=== PATIENT | male | born 1965 | race Caucasian/White ===

== ENCOUNTER → 2017-05-15 | Outpatient (CLI) | payer OTHER ==
[~2017-05-15] MED LIST: ACETAMINOPHEN325 M1 PO; ADVAIR 250-501 EACH; ADVAIR 500-501 EACH INH; ADVAIR HFA 45MC1 AER INH; AUGMENTIN 875875 MG PO; CARISOPRODOL 3350 MG PO; COLACE100 MG PO; COUMADIN 5 MG TA5 M1 PO; DILAUDID 4 MG TA4 M1 PO; ENOXAPARIN120 MG/0.1 SUBQ; FOLBIC RF TABL1 EACH PO; FOLIC ACID 40400 MCG PO; GLUCOPHAGE500 MG PO; HYDROCODONE-AP1 EAC6 PO; INTUNIV2 MG; INTUNIV3 MG PO; INTUNIV4 MG PO; KEFLEX500 MG PO; LANSOPRAZOLE30 MG PO; LANTUSSOLASTAR SUBQ; LEVAQUIN 500 M500 MG PO; LISINOPRIL10 MG PO; MEDROLDOSEPACK PO; MOBIC15 MG PO; NIASPAN 500 MG500 M1 PO; NORCO 5-325 TA1 EACH PO; NORVASC5 MG PO; PERCOCET 10-321 EACH PO; PERCOCET 7.5-31 EAC1 PO; PERCOCET 7.5-31 EACH PO; PREDNISONE50 MG PO; PRISTIQ100 MG PO; PROAIR HFA8.5 GM; RITALIN20 MG PO; SENNA8.6 MG PO; SINGULAIR 10 MG10 M1 PO; VITAMIN D32000 UNI1 PO; VITAMIN E400 UNIT PO; XARELTO15 MG PO
== END ==
LOC: RAD 06:58
DX: M48.02 Spinal stenosis, cervical region (principal); M54.12 Radiculopathy, cervical region

== ENCOUNTER 2019-05-27 19:47 | Inpatient (IN) | payer OTHER ==
[~2019-05-27] VITALS: Ht 193 cm; Wt 125.2 kg
[2019-05-27 19:53] VITALS: BP 173/110
[2019-05-27 21:24] LABS: ABSOLUTE NEUTROPHILS 3.8 thou/uL (1.4-8.2); BASOPHILS 1.3 % (0.0-2.0); EOSINOPHILS 1.9 % (0.0-3.0); HEMATOCRIT 48.5 % (42.0-52.0); HEMOGLOBIN 15.9 gm/dL (14.0-18.0); LYMPHOCYTES 23.2 % (24.0-44.0); MCH 29.7 pg (26.0-34.0); MCHC 32.9 g/dL (28.0-37.0); MCV 90.2 fL (80.0-100.0); MONOCYTES 9.4 % (1.0-8.0); PLATELET COUNT 163 thou/uL (150-400); POLYS 64.2 % (36.0-66.0); RBC 5.37 mil/uL (4.50-6.00); RDW 14.4 % (10.5-14.5)
[2019-05-27 21:46] LABS: ANION GAP 20 mmol/L (7-16); BUN 24 mg/dL (7-18); CHLORIDE 93 mmol/L (98-107); CO2 13 mmol/L (21-32); CREATININE 1.2 mg/dL (0.7-1.3); POTASSIUM 4.9 mmol/L (3.5-5.1); SODIUM 126 mmol/L (136-145); TROPONIN-I <0.06 ng/mL (<0.06)
[2019-05-27 21:48] LABS: GLUCOSE 571 mg/dL (74-106)
[2019-05-27 22:41] LABS: URINE BILIRUBIN NEGATIVE (Negative); URINE BLOOD NEGATIVE (Negative); URINE CLARITY CLEAR; URINE COLOR YELLOW; URINE GLUCOSE-RANDOM* 3+ (Negative); URINE KETONES TRACE (Negative); URINE LEUKOCYTES-REFLEX NEGATIVE (Negative); URINE NITRITE-REFLEX NEGATIVE (Negative); URINE PROTEIN (DIPSTICK) NEGATIVE (Negative); URINE REDUCING SUBSTANCE >2 %; URINE UROBILINOGEN 0.2 E.U./dl (0.2-1.0)
--- NOTE | 2019-05-27 22:47 | NUR ---
PROVIDER AT BEDSIDE SPEAKING WITH PT ABOUT RESULTS
[2019-05-28] VITALS (26 sets, daily range): BP systolic 112–168; BP diastolic 74–107
--- NOTE | 2019-05-28 00:14 | NUR ---
СВЕТЛАНА TOOL DISPATCHER AT BEDSIDE SPEAKING TO PT
[2019-05-28 01:06] LABS: MAGNESIUM 1.8 mg/dL (1.8-2.4); PHOSPHORUS 3.6 mg/dL (2.5-4.9)
[2019-05-28 06:09] LABS: CALCIUM 8.4 mg/dL (8.5-10.1); CREATININE 0.9 mg/dL (0.7-1.3); PHOSPHORUS 3.1 mg/dL (2.5-4.9)
[2019-05-28 06:13] LABS: POTASSIUM 3.5 mmol/L (3.5-5.1)
--- NOTE | 2019-05-28 06:30 | NUR ---
Pt admitted from ED for DKA, with BGL at 494, he had a syncopal episode prior to admission, with mild swelling noted to his Lt lateral knee, he received PO tylenol/ice pack with good relief. He is A/O x 4, is quite pleasant, DENT's, transferred from the cart to the bed w/o difficulty. SR/ST, a positional BP cuff reads elevated at times, no edema, + pulses. LCTA, diminished to bases, on O2 at 2 L/m, he has a HX of asthma. Insulin drip infusing, with steady decline of blood glucose readings noted. GAP is at 16 this morning, review labs for other values.
--- NOTE | 2019-05-28 08:09 | EKG ---
[address] [address] ELECTROCARDIOGRAM REPORT Name: WAGNER GARDNER Room #: 244-P ADM IN M.R.#: [id number] Admission: 05/27/19 Attend Phys: Mora Sanchez Discharge: Date of : 65 Report #: [id number] THIS REPORT FOR: //name// [facility] ED Test Date: 2019-05-27 Test Time: 20:43:17 Pat Name: WAGNER GARDNER Department: Room: 244 Gender: M Head Of Sales: eli : 1965 Requested By: Alphonso Cox Order Number: [id number] MD: Drake Miguel Measurements Intervals [place] Rate: 111 P: 51 VT: 173 QRS: -24 QRSD: 126 T: 52 QT: 328 QTc: 446 Interpretive Statements Sinus tachycardia Nonspecific intraventricular conduction delay Baseline wander in lead(s) V3 Compared to ECG 01/19/2016 11:29:57 Heart rate has increased Electronically Signed On 05-28-2019 8:09:25 INTERIOR SPECIALIST by Drake Miguel [email or web address] <ELECTRONICALLY SIGNED> By: Drake Miguel MD, [facility] 05/28/19 [phone] Drake Miguel MD, [facility] /EPI
--- NOTE | 2019-05-28 10:11 | NUR ---
Nutrition: pt admitted to ICU with DKA and syncopal episode, admitting BG 571. Pt lost his job 2 months ago and has been without diabetic medications past 2 months. A1C 2-3 months ago reported as 6.2% and pt was followed by curatorial assistant. Currently on insulin drip. Usual appetite is good and recent weights stable. On clear liquids at present. Assistance will be provided so pt can get affordable meds and control DM until health insurance obtained. RD available as needed however pt denies present education needs, states follows diet at home. Low nutrition risk.
[2019-05-28 10:13] LABS: CHOLESTEROL 235 mg/dL (<200); HDL CHOLESTEROL 29 mg/dL (>40); TC:HDL 8.1 Ratio (Not establshd); TRIGLYCERIDE 1030 mg/dL (<150); VLDL 206 mg/dL (<40)
[2019-05-28 10:19] LABS: ALBUMIN 2.9 g/dL (3.4-5.0); CALCIUM 8.1 mg/dL (8.5-10.1); CREATININE 0.9 mg/dL (0.7-1.3); PHOSPHORUS 2.6 mg/dL (2.5-4.9); POTASSIUM 3.9 mmol/L (3.5-5.1)
[2019-05-28] MEDS ORDERED: BASAGLAR K100 UNIT/1 SUBQ (10:55)
--- NOTE | 2019-05-28 12:27 | HC ---
[facility] [place] [address] CONSULTATION Name: WAGNER GARDNER Room #: 244-P [facility] IN .R.#: [id number] Admission: 05/27/19 Attend Phys: Mercedez Knox MD Discharge: Date of : 65 Report #: [id number] THIS REPORT FOR: //name// CC: Mora Roth DATE OF SERVICE: 05/28/2019 CONSULTING PHYSICIAN: Dr. Marcelo Roth. REASON FOR CONSULTATION: Diabetic ketoacidosis, uncontrolled type 2 diabetes mellitus. HISTORY OF PRESENT ILLNESS: This is a 53-year-old male patient whose medical background is significant for type 2 diabetes mellitus, hypertension, DVT and PE. The patient presented to the Emergency Department yesterday following a syncopal episode. The patient notes that while at a gas station, he felt suddenly extreme weakness and collapsed to the floor, only to wake up after that uneventfully and without confusion. The patient notes that he had felt quite well up until that occurrence. His background is significant for type 2 diabetes mellitus diagnosed 15 years ago. He was maintained on a regimen consisting of metformin, weekly Trulicity, Levemir insulin 28 units daily. He notes that he has been following routinely with his public health teacher at [facility] and that his most recent hemoglobin A1c 2 to 3 months ago was 6.2%. Unfortunately, the patient lost his job about 2 months ago, and with that, he lost health coverage. This led to the complete cessation of oral antidiabetic agents as well as all of his other medicines including his antihypertensive regimen Xarelto and ADD medicines. He has not checked his blood sugars whatsoever during this period of time due to lack of glucose testing strips. He has not practically appreciated and issues with polyuria, excessive thirst or weight changes. As noted above, the patient has hypertension and was on a regimen of lisinopril, amlodipine. I did not see any lipid-lowering agents on his previous medication list. The patient denies active issues with coronary artery disease, retinopathy, but notes that he was diagnosed with peripheral neuropathy at some point. The patient is status post left great toe amputation. REVIEW OF SYSTEMS: CONSTITUTIONAL: Fatigue, tiredness, but not fever or chills or weight changes. HEENT: Negative for sinus pain, ear drainage. PULMONARY: Negative for shortness of breath, cough or hemoptysis. CARDIAC: Negative for chest pain, palpitations, syncope or presyncope. GASTROINTESTINAL: Negative for abdominal pain, nausea, vomiting. NEUROLOGY: Negative for loss of consciousness prior to presentation. Negative [facility] [address] [place] [address] CONSULTATION Name: WAGNER GARDNER Room #: 244-P [facility] IN M.R.#: [id number] Admission: 05/27/19 Attend Phys: Mercedez Knox MD Discharge: Date of : 65 Report #: [id number] for seizure activity. Negative for frequent severe headaches. PSYCHIATRIC: Negative for delusions, hallucinations. The patient has baseline ADD issues. SKIN: Negative for rash, ulceration or other major changes. Otherwise, review of systems is noncontributory other than those mentioned in HPI. PAST MEDICAL HISTORY: 1. Type 2 diabetes mellitus. 2. Hypertension. 3. DVT. 4. PE. 5. ADD. 6. Diabetic neuropathy. 7. Asthma. ALLERGIES: ASPIRIN. OUTPATIENT MEDICATIONS: The patient has not had any medications whatsoever for the past 2 months. However, prior to that, he was on a regimen of: 1. Trulicity once a week. 2. Levemir 28 units daily. 3. Metformin b.i.d. 4. Amlodipine. 5. Lisinopril. 6. Ritalin. 7. Pristiq. FAMILY HISTORY: Noncontributory. SOCIAL HISTORY: The patient is single. He has 2 grown children. 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 He anticipates to get a job in 1-2 months from now. The patient denies use of alcohol or illicit drugs. The patient is an ex-smoker, but quit smoking more than 20 years ago. PHYSICAL EXAMINATION: GENERAL: This is a pleasant male patient who is not in apparent pain or distress. He is lying in bed, seemingly comfortable, not in apparent pain or distress. VITAL SIGNS: Blood pressure is 120/79, heart rate is 84 beats per minute, respirations 15 per minute, temperature 36.7 degrees. HEENT: Anicteric sclerae. Intact extraocular motions. NECK: Supple without JVD, carotid bruits or lymphadenopathy. I do not appreciate thyromegaly. CHEST: Clear to auscultation with good air entry bilaterally. No wheeze or [facility] [address] [place] [address] CONSULTATION Name: WAGNER GARDNER Room #: 244-P [facility] IN M.R.#: [id number] Admission: 05/27/19 Attend Phys: Mercedez Knox MD Discharge: Date of : 65 Report #: [id number] crackles noted. There is no percussion noted over both lung rehman. HEART: Regular rate and rhythm without murmurs or gallops. ABDOMEN: Soft and lax without tenderness or organomegaly, has active bowel sounds. EXTREMITIES: Lower extremity exam is negative for ankle edema. The patient is status post left great toe amputation. Pedal pulses are faint. Sensation to light touch is moderately diminished bilaterally. NEUROLOGIC: Awake, alert and oriented to time, place and person. The remainder of his examination is nonfocal other than for the sensory deficits noted above. PSYCH: Pleasant, appropriate and interactive. Normal mood and affect. LABORATORY DATA: On arrival, the patient had blood glucose of 482 mg/dL, which had gradually descended to 221 mg/dL. Sodium 135, potassium 3.5, chloride 102, CO2 of 17, anion gap 16, this was 19 on arrival, BUN 17, creatinine 0.9, AST 11, total bilirubin 0.3, calcium 8.4, phosphorus 3.1, magnesium 1.6, alkaline phosphatase 145, ALT 34, total protein 6.9, albumin 3.0. EGFR 88. Lactic acid 0.5, troponin 0.22. INR 1.8. White blood count 6.0, hemoglobin 15.9, hematocrit 48.5, platelets 163. ASSESSMENT AND PLAN: 1. Diabetic ketoacidosis. As noted above, the patient presented in diabetic ketoacidosis. Judging by the presenting parameters, it appears that this has not necessarily been severe. The patient had already been placed on the proper management including IV insulin and IV fluids, and is being managed as per IV insulin protocol. I would like to continue these measures for at least 24 hours to ensure the complete normalization of his metabolic deficits abnormalities. I would advise continuing with IV insulin as per protocol and maintain blood glucose monitoring as per protocol as well. Once his stability was ensured in 24 hours, an effort will be made to transition the patient to subcutaneous insulin intake. In order to facilitate this transition as we anticipated to be early tomorrow, I will present the patient with a single dose of Lantus at 16 units. 2. Type 2 diabetes mellitus. As noted above, the patient has had a longstanding history of type 2 diabetes mellitus, which has reportedly been under very good control with his stated outpatient regimen. Unfortunately, the complete cessation of oral antidiabetic agents for extended period of time had resulted in a decline that culminated in his DKA presentation. The patient was counseled extensively about the importance of achieving and maintaining adequate glycemic control so as to avoid diabetic complications short term and usp. I explained that even without any health coverage in place, there are generic options to be considered and to ensure his safety while he awaits a better health plan in terms. He expresses understanding of this notion. Given his presentation with DKA, I believe that future antidiabetic plans should definitely include insulin to avoid this predicament again. The details of his transition will be determined based on his outlook instability upon the cessation of intravenous insulin therapy. In the meantime, I will obtain a [address] [place] [address] CONSULTATION Name: KENDRAWAGNER Kehinde Room #: 244-P [facility] IN M.R.#: [id number] Admission: 05/27/19 Attend Phys: Mercedez Knox MD Discharge: Date of : 65 Report #: [id number] hemoglobin A1c to get a better feel for his overall level of control over the past several weeks. 3. Hyperlipidemia. As a patient with type 2 diabetes mellitus and thromboembolic disease, and adequate lipid status assessment should be conducted. I will do so today. 4. Thyroid dysfunction. Given his diabetic state, I will screen the patient for thyroid dysfunction and undertake any necessary measures if abnormalities encountered. 5. Hypertension. The patient states that he had been on dual therapy for hypertension. However, his blood pressure control is adequate thus far without active therapy. I will defer active management to the Hospital Medicine team. I certainly appreciate this consultation by Dr. Roth. <ELECTRONICALLY SIGNED> By: Roslyn Villalpando MD 05/28/19 1227 [id number] Roslyn Villalpando MD /nt
--- NOTE | 2019-05-28 13:49 | NUR ---
Case opened to follow for dc planning. Pt is currently in ICU on an insulin gtt for DKA. He is A&ox4 and indicates that he is normally indep with gait and adl's and lives with his parents and adult children. 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 He has been living off student loans and borrowing from family for the past year. He stopped taking his insulin and xarelto a few months ago due to finances. He is aware of [facility] and that he can contact his pcp office for samples. We discussed utilizing saftey net clinics like [facility] walkin clinic if needed. He is agreeable and will followup. Cm to help with 30 day supply [place] meds at [place]. The pt has been given a slim application by admitting and he will complete that and return it in the near future. He hurt his knee when he passed out and states he has a bariatric walker at home if needed. He is hoping to have insurance by August 09 through the new job. Pt is most concerned about his insulin and blood thinner. Will follow.
[2019-05-28 16:18] LABS: ALBUMIN 3.3 g/dL (3.4-5.0); CREATININE 1.1 mg/dL (0.7-1.3); PHOSPHORUS 3.2 mg/dL (2.5-4.9); POTASSIUM 3.7 mmol/L (3.5-5.1)
[2019-05-29] VITALS (9 sets, daily range): BP systolic 103–152; BP diastolic 64–93
[2019-05-29 01:06] LABS: GLYCOHEMOGLOBIN (HGB A1C) 14.1 % (4.8-5.6)
--- NOTE | 2019-05-29 05:07 | NUR ---
ASSUMED CARE OF PT AT 0315 FROM [facility]. PT ALERT AND ORIENTED. APPROPRIATE AND COOPERATIVE. SR. INSULIN GTT TITRATED PER DKA PROTOCOLL. WILL CONTINUE TO MONITOR.
[2019-05-29 06:07] LABS: ABSOLUTE NEUTROPHILS 2.1 thou/uL (1.4-8.2); BASOPHILS 0.7 % (0.0-2.0); HEMATOCRIT 40.7 % (42.0-52.0); LYMPHOCYTES 37.3 % (24.0-44.0); MCH 28.8 pg (26.0-34.0); MCV 90.2 fL (80.0-100.0); MONOCYTES 11.1 % (1.0-8.0); PLATELET COUNT 125 thou/uL (150-400); POLYS 47.9 % (36.0-66.0); RBC 4.52 mil/uL (4.50-6.00); RDW 14.5 % (10.5-14.5); WBC 4.5 thou/uL (4.0-11.0)
[2019-05-29 06:16] LABS: ALBUMIN 2.5 g/dL (3.4-5.0); CALCIUM 7.7 mg/dL (8.5-10.1); CREATININE 0.9 mg/dL (0.7-1.3); MAGNESIUM 1.8 mg/dL (1.8-2.4); POTASSIUM 3.4 mmol/L (3.5-5.1); TOTAL BILIRUBIN 0.2 mg/dL (<0.1-1.0); TOTAL PROTEIN 5.8 g/dL (6.4-8.2)
[2019-05-29] MEDS ORDERED: TRADJENTA5 MG PO (11:59)
[2019-05-29] MEDS ORDERED: LANTUS100 UNIT/M SUBQ (11:59)
[2019-05-29] MEDS ORDERED: HUMALOG100 UNIT/1 SUBQ (12:00)
--- NOTE | 2019-05-29 15:53 | NUR ---
ASSUMED CARE OF PATIENT APPROX 1300. PATIENT TRANSFER FROM ICU. PATIENT CAME UP ON INSULIN DRIP WITH 57 UNITS REMAINING. PATIENT IN NO DISTRESS AND VITALS ARE STABLE. PATIENT STATES HES HAVING PAIN IN LEFT KNEE, MEDICATION GIVEN. IV REMAINS IN BOTH RIGHT AND LEFT AC. WILL CONTINUE TO MONITOR.
--- NOTE | 2019-05-29 16:53 | NUR ---
CM VOUCHERED PT'S INSULIN AND XERALTO. INFOR PROVIDED FOR FOLLOW UP CARES AT [facility].
== END 2019-05-29 18:30 | disposition home or self-care (01) | DRG 638 ==
LOC: ER 19:47 → ICU 23:28 → EROBS 23:28 → ICU 05-28 00:11 → 4W 05-29 12:32
PROVIDERS: Emergency Medicine; Hospitalist; Internal Medicine; Nurse Practitioner Family; ADMIT Internal Medicine
DX: E11.10 Type 2 diabetes mellitus with ketoacidosis without coma (principal); E87.1 Hypo-osmolality and hyponatremia; G89.29 Other chronic pain; I10 Essential (primary) hypertension; E11.42 Type 2 diabetes mellitus with diabetic polyneuropathy; J45.909 Unspecified asthma, uncomplicated; F98.8 Other specified behavioral and emotional disorders with onset usually occurring in childhood and adolescence; E78.5 Hyperlipidemia, unspecified; E07.9 Disorder of thyroid, unspecified; Z86.718 Personal history of other venous thrombosis and embolism; Z79.01 Long term (current) use of anticoagulants; Z89.411 Acquired absence of right great toe; Z88.6 Allergy status to analgesic agent; Z91.018 Allergy to other foods; Z87.891 Personal history of nicotine dependence; Z86.711 Personal history of pulmonary embolism; Z79.4 Long term (current) use of insulin
CPT/HCPCS: 10078